=== PATIENT | female | born 1945 | race Caucasian/White ===

== ENCOUNTER 2022-03-23 10:23 | Day surgery (SDC) | payer OTHER ==
[~2022-03-23 10:23] MED LIST: Acetaminophen 1,000 MG in Premix Bag 1 BAG IV SCH; Lactated Ringers 1,000 ML IV SCH; Pregabalin 75 MG Cap PO SCH; ceFAZolin 2 GM in Premix Bag 1 BAG IV SCH
[2022-03-23] MEDS ORDERED: fentaNYL 50 MCG/ML SDV IVPUSH PRN (11:04)
[2022-03-23] MEDS ORDERED: Naloxone 0.4 MG/ML SDV IVPUSH PRN (11:04)
[2022-03-23] MEDS ORDERED: HYDROmorphone 1 MG/ML Syringe IVPUSH PRN (11:04)
[2022-03-23] MEDS ORDERED: Ondansetron 4 MG/2 ML SDV IVPUSH PRN (11:04)
[2022-03-23] MEDS ORDERED: Albuterol 0.083% 2.5 MG/3 ML Neb Soln NEB PRN (11:04)
[2022-03-23] MEDS ORDERED: Metoclopramide 10 MG/2 ML SDV IVPUSH PRN (11:04)
[2022-03-23] MEDS ORDERED: Propofol 200 MG/20 ML SDV ONE (12:22)
[2022-03-23] MEDS ORDERED: fentaNYL 100 MCG/2 ML SDV ONE (12:22)
[2022-03-23] MEDS ORDERED: Bupivacaine 0.5% 10 ML SDV ONE (12:29)
[2022-03-23] MEDS ORDERED: Heparin Sodium 100 Units/ML 3 ML Syringe ONE (12:30)
[2022-03-23] MEDS ORDERED: Lidocaine 1% 20 ML MDV ONE (12:30)
[2022-03-23] MEDS ORDERED: Iopamidol 408 MG/ML 20 ML SDV ONE (12:30)
[2022-03-23] MEDS ORDERED: ePHEDrine 50 MG/ML SDV ONE (13:51)
[2022-03-23] MEDS ORDERED: Glycopyrrolate 0.2 MG/ML SDV ONE (13:51)
[2022-03-23] MEDS ORDERED: Phenylephrine 1% 10 MG/ML SDV ONE (13:51)
== END 2022-03-23 16:16 | disposition home or self-care (01) ==
LOC: MW.SDS 10:23
PROVIDERS: ATTEND Surgery
DX: C50.919 Malignant neoplasm of unspecified site of unspecified female breast (principal); F41.9 Anxiety disorder, unspecified; I47.1 Supraventricular tachycardia; Z98.890 Other specified postprocedural states
CPT/HCPCS: 36415; 71045; 71045-26; 76000; 76000-26; 85610; A9270-GY; J0131; J1642; J2370; J2704; J3010; J3490; J7120; Q9966

== ENCOUNTER 2023-05-26 08:10 | Day surgery (SDC) | payer MEDICARE, BC ==
[~2023-05-26 08:10] MED LIST changes: +Albuterol 0.083% 2.5 MG/3 ML Neb Soln NEB PRN; +HYDROmorphone 1 MG/ML Syringe IVPUSH PRN; +Metoclopramide 10 MG/2 ML SDV IVPUSH PRN; +Morphine 2 MG/ML SYRINGE IVPUSH PRN; +Naloxone 0.4 MG/ML SDV IVPUSH PRN; +Ondansetron 4 MG/2 ML SDV IVPUSH PRN; -Pregabalin 75 MG Cap PO SCH; +ceFAZolin 1 GM in Sodium Chloride 0.9% 50 ML IV ONE; -ceFAZolin 2 GM in Premix Bag 1 BAG IV SCH; +droPERidol 5 MG/2 ML SDV IVPUSH PRN; +fentaNYL 50 MCG/ML SDV IVPUSH PRN
[2023-05-26] MEDS ORDERED: Lidocaine 1% 20 ML MDV ONE (08:30)
[2023-05-26] MEDS ORDERED: Bupivacaine 0.5% 30 ML SDV ONE (08:30)
[2023-05-26] MEDS ORDERED: Ondansetron 4 MG/2 ML SDV ONE (09:08)
[2023-05-26] MEDS ORDERED: Lidocaine 2% 5 ML SDV ONE ×2 (09:08→09:47)
[2023-05-26] MEDS ORDERED: Dexamethasone 4 MG/ML 5 ML MDV ONE (09:08)
[2023-05-26] MEDS ORDERED: Propofol 200 MG/20 ML SDV ONE (09:08)
[2023-05-26] MEDS ORDERED: ceFAZolin 1 GM Vial ONE (10:29)
== END 2023-05-26 11:30 | disposition home or self-care (01) ==
LOC: MW.SDS 08:10
PROVIDERS: ATTEND Surgery
DX: C50.919 Malignant neoplasm of unspecified site of unspecified female breast (principal); F41.9 Anxiety disorder, unspecified; I47.10 Supraventricular tachycardia, unspecified; Z90.710 Acquired absence of both cervix and uterus; Z79.899 Other long term (current) drug therapy
CPT/HCPCS: 36590; J0690; J1100; J2405; J2704; J3490; J7120